=== PATIENT | male | born 1985 | race Hispanic/Latino ===

== ENCOUNTER 2017-07-30 08:31 | Observation (INO) | payer SELFPAY ==
[2017-07-30 10:11] LABS: #Basophils 0.1 thou/uL (0.0-0.2); #Lymphocytes 2.1 thou/uL (1.20-3.40); #Monocytes 1.2 thou/uL (0.11-0.59); #Neutrophils 12.6 thou/uL (1.40-6.50); %Basophils 0.6 % (0.0-1.0); %Eosinophils 0.3 % (0.0-10.0); %Lymphocytes 13.2 % (21.0-51.0); %Monocytes 7.4 % (0.0-10.0); %Neutrophils 78.4 % (42.0-75.0); Hemoglobin 13.8 g/dL (14.0-18.0); Mean Corpuscular HGB CONC 33.5 g/dL (32.0-36.0); Mean Corpuscular Hemoglobin 31.4 pg (27.0-31.0); Mean Platelet Volume 6.2 fL (7.4-10.4); Platelet Count 356 thou/uL (130-400); RBC Distribution Width 11.9 % (11.5-14.5); Red Blood Cell (RBC) Count 4.38 mill/uL (4.70-6.10); White Blood Cell (WBC) Count 16.1 thou/uL (4.8-10.8)
[2017-07-30] MEDS ORDERED: Clindamycin/D5W 900 mg/50 ml Premix Bag ONE (10:21)
[2017-07-30] MEDS ORDERED: Dexamethasone 4 mg/ml Vial ONE ×2 (10:21→11:00)
[2017-07-30 10:37] LABS: ALT (SGPT) 57 U/L (8-55); AST (SGOT) 33 U/L (5-34); Albumin 4.6 g/dL (3.5-5.0); Alkaline Phosphatase 150 U/L (40-150); Anion Gap 15 mmol/L (10-20); BUN (Urea Nitrogen) 11 mg/dL (8.9-20.6); Bilirubin, Total 1.4 mg/dL (0.2-1.2); Calc. Creatinine Clearance 0 mL/min (70-130); Calcium 10.1 mg/dL (7.8-10.44); Carbon Dioxide 32 mmol/L (22-29); Chloride 93 mmol/L (98-107); Estimated GFR-MDRD 86; Globulin 4.7 g/dL (2.4-3.5); Glucose 116 mg/dL (70-105); Potassium 3.5 mmol/L (3.5-5.1); Protein, Total 9.3 g/dL (6.0-8.3); Sodium 136 mmol/L (136-145)
[2017-07-30] MEDS ORDERED: cefTRIAXone\\ROCEPHIN 2 GM, Admixture Fee 1 EACH in Sodium Chloride 0.9% 100 ML IVPB SCH (10:45)
[2017-07-30] MEDS ORDERED: ISOVUE-370 76%-LOCM 1 ML ONE (11:11)
--- NOTE | 2017-07-30 11:26 | CT ---
EXAM: POSTCONTRAST SOFT TISSUE NECK CT: HISTORY: Five days of sore throat. COMPARISON: None. TECHNIQUE: Postcontrast soft tissue neck CT is performed in the axial plane. Sagittal and coronal reformatted i mages are submitted for interpretation. FINDINGS: Adequate mastoid air cell aeration. Left maxillary sinus and ethmoidal mucosal disease. There is fu llness of the nasopharynx with effacement of the left fossa of Rosenmuller. There is abnormal soft t issue and mucosal thickening extending inferiorly from the nasopharynx down to the supraglottic laryn x. There is a large left peritonsillar abscess measuring 3.9 x 3.4 x 5.4 cm. There is effacement of the left parapharyngeal fat. There is narrowing of the airway. Epiglottis has a normal caliber. P reepiglottic fat is preserved. No obvious masses in the oral cavity. Midline fatty raphae of the to ngue is preserved. There is mild prevertebral soft tissue swelling at the level of the upper cervical spine. There is n o evidence of a prevertebral abscess. Enlarged bilateral level II lymph nodes measuring 1.3 x 2.1 on the right and 1.9 x 1.4 on the left. There is patency of both cervical and carotid vertebral arteries. Symmetric attenuation of the sternocleidomastoid muscles. Appropriate attenuation of the parotic and submandibular glands. The thyroid gland is unremarkable. Mediastinum and lung apices are also unremarkable. IMPRESSION: Left peritonsillar abscess as defined above. Results of the study discussed with Abbie Gómez 07/30/17 at 10:42 a.m. CODE DEVONTE POS: JOSELITO
[2017-07-30] MEDS ORDERED: Ondansetron HCl/PF 4 MG/2 ML Vial IVP PRN (14:23)
[2017-07-30] MEDS ORDERED: Acetaminophen 325 MG TAB PO PRN (14:23)
[2017-07-30] MEDS ORDERED: HYDROcodone/Acetaminophen 5/325 mg Tablet PO PRN (14:23)
--- NOTE | 2017-07-30 15:32 | HP ---
DATE OF CONSULTATION: 07/30/2017 INPATIENT CONSULT REASON FOR CONSULTATION: The patient was seen in consultation by the emergency room for evaluation o f tonsillar abscess. HISTORY OF PRESENT ILLNESS: This is a 31-year-old gentleman who has had a 5-day history of swelling of his left tonsil and bilateral throat pain. He has had low grade fevers, poor oral intake, and tro uble tolerating his secretions, which just started last night. He reports having two previous tonsil lar abscesses that have been drained at the bedside. He has not ever followed up for discussion abou t tonsillectomy. PAST MEDICAL HISTORY: Noncontributory. PAST SURGICAL HISTORY: None. MEDICATIONS: None. DRUG ALLERGIES: TETANUS SHOT. SOCIAL HISTORY: Social tobacco and alcohol user. REVIEW OF SYSTEMS: Constitutional: Positive fevers, chills, 5-pound weight loss in the past week. Cardiovascular: No chest pain or orthopnea. Hematology: No history of bleeding disorders. Lungs: No history of wheezing, asthma or bronchitis. PHYSICAL EXAMINATION: GENERAL: Patient is resting in bed comfortably. He has trismus to approximately 2-3 cm. HEENT: There was a very large left tonsillar abscess present pushing the uvula towards the right. T he right tonsil is 2+ cryptic, mildly injected and red. NECK: Subtle lymphadenopathy bilateral level 2, no firm areas, no abscess collection. No fluctuance noted. Voice has a sound to it, otherwise, no stridor. IMAGING: CT scan of the neck was reviewed by me, which shows a large left intratonsillar abscess pre sent along with bilateral lymphadenopathy level 2 and level 3, all less than 2 cm. ASSESSMENT: 1. Left tonsil abscess. 2. Acute tonsillitis. 3. Tonsillar hypertrophy. PROCEDURE: At the bedside, risks, benefits, and alternatives discussed with the patient. One mL of 1% lidocaine 1:100,000 epinephrine was injected into the anterior wall of the expanded tonsil fossa a nd pillar. Following this, multiple injections with an 18 gauge were made, aspirating a total of 12 mL of purulence from this tonsil area. The uvula immediately returned to the midline. His airway is much more patent. The patient was able to tolerate secretions. PLAN: He will remain in the emergency room for the next 2-3 hours until he is much improved. He can be discharged home on Augmentin 875 mg 1 twice daily and follow up in our clinic tomorrow for repeat evaluation. Otherwise, if the patient is unable to tolerate secretions in the hour or two, then rec ommend admissions to the hospital group and we will reevaluate him after 24-48 hours of IV antibiotic s.
[2017-07-30] MEDS ORDERED: Cepastat Lozenges 1 LOZ PO PRN (16:20)
[2017-07-30] MEDS ORDERED: Ketorolac Tromethamine 30 MG/ML VIAL IVP SCH (16:30)
[2017-07-30 16:46] VITALS: BMI 31.8
[2017-07-30] MEDS: Dextrose 5 %-0.45 % NaCl 1,000 ML IV SCH (17:09)
[2017-07-30] MEDS: Ibuprofen 800 MG TAB PO SCH ×2 (17:10→21:25)
[2017-07-30] MEDS ORDERED: FLU VACC QS2017-18 36 mo. & older 0.5 ML SYRINGE IM ONE (17:30)
--- NOTE | 2017-07-30 18:06 | HP ---
PRIMARY CARE PHYSICIAN: None. PRESENTING COMPLAINT: "I've been unable to swallow." HISTORY OF PRESENT ILLNESS: This is a 31-year-old male with no past medical history who presented to the hospital after he has felt unwell for the past week. He developed fevers, chills, and pain in h is throat (sore throat) associated with inability to swallow. He also was unable to eat in this yassine od and has felt dehydrated. He has had similar episodes in the past, episode resolved with him takin g oral antibiotics and some lozenges. Due to persistence of his symptoms, he became lethargic and re ported to the emergency room. At the emergency room, he was volume depleted and examination revealed left tonsillar abscess with lymphadenopathy in his neck. ENT was called and drainage was done in e emergency room; however, he still remained unable to take food p.o., so decision was made to admit him overnight with likely discharge in the next 24-48 hours, after which he will be reviewed by ENT. Imaging at the emergency room of the soft tissue of his neck revealed a left peritonsillar abscess. Labs showed elevated WBC with left shift. Chemistry, marginally unremarkable. PAST MEDICAL HISTORY: None. PAST SURGICAL HISTORY: None. FAMILY HISTORY: Reviewed, not contributory. SOCIAL HISTORY: He smokes cigarettes and drinks alcohol occasionally. No use of illicit drugs. ALLERGIES: None. REVIEW OF SYSTEMS: GENERAL: Positive for fevers and chills. HEENT: Positive for sore throats and difficulty swallowing. CARDIAC: Negative. RESPIRATORY: Denies cough, shortness of breath or sputum production. GASTROINTESTINAL: Negative. GENITOURINARY: Negative. MUSCULOSKELETAL: Negative. PSYCHIATRIC: Negative. NEUROLOGICAL: Denies headache, lightheadedness or loss of consciousness. SKIN: Negative. IMMUNOLOGICAL: Negative. HEMATOLOGICAL: Negative. PHYSICAL EXAMINATION: VITAL SIGNS: Borderline hypotensive with blood pressure of 89/50. Other vital signs within normal l imits. GENERAL: Not in acute distress, sitting comfortably in bed. HEENT: PERRLA, EOMI not pale, anicteric. Normocephalic and atraumatic. Throat exam; erythema and t onsils with hyperemia. NECK: Supple, full range of movements, cervical lymphadenopathy. CHEST: Vesicular breath sounds bilaterally. No wheezes, rales or rhonchi. CARDIOVASCULAR: S1 and S2 only. No murmurs, rubs or gallops. ABDOMEN: Soft, nontender and nondistended. Bowel sounds present. No hepatosplenomegaly. EXTREMITIES: Moves all spontaneously with no edema. SKIN: Warm, dry and well perfused. NEUROLOGIC: Alert and well oriented. No focal deficits. IMAGING DATA: As above. LABORATORY DATA: As above. ASSESSMENT: 1. Left tonsillar abscess. 2. Acute tonsillitis. 3. Tonsillar hypertrophy. PLAN: He is status post drainage by ENT. He is, however, unable to tolerate p.o. We will admit him for IV hydration, adequate pain control with intravenous morphine. We will also place on lozenges a nd we will start liquid diet tonight and advance as tolerated. We will follow up his throat swab for culture results.
[2017-07-30] MEDS: Docusate 100 MG CAP PO SCH (21:25)
[2017-07-31] MEDS: Dextrose 5 %-0.45 % NaCl 1,000 ML IV SCH ×2 (01:17→09:24)
[2017-07-31] MEDS: Ibuprofen 800 MG TAB PO SCH ×2 (04:38→09:25)
[2017-07-31 05:15] LABS: #Lymphocytes 1.6 thou/uL (1.20-3.40); #Monocytes 0.8 thou/uL (0.11-0.59); #Neutrophils 12.7 thou/uL (1.40-6.50); %Eosinophils 0.1 % (0.0-10.0); %Lymphocytes 10.8 % (21.0-51.0); %Neutrophils 84.2 % (42.0-75.0); Hemoglobin 12.6 g/dL (14.0-18.0); Mean Corpuscular HGB CONC 32.6 g/dL (32.0-36.0); Mean Corpuscular Hemoglobin 31.4 pg (27.0-31.0); Mean Corpuscular Volume 96.5 fl (80.0-94.0); Mean Platelet Volume 6.5 fL (7.4-10.4); Platelet Count 342 thou/uL (130-400); White Blood Cell (WBC) Count 15.1 thou/uL (4.8-10.8)
[2017-07-31 05:29] LABS: Anion Gap 9 mmol/L (10-20); BUN (Urea Nitrogen) 8 mg/dL (8.9-20.6); Calc. Creatinine Clearance 173 mL/min (70-130); Calcium 9.3 mg/dL (7.8-10.44); Carbon Dioxide 30 mmol/L (22-29); Chloride 101 mmol/L (98-107); Estimated GFR-MDRD Greater than 90; Glucose 129 mg/dL (70-105); Potassium 3.8 mmol/L (3.5-5.1); Sodium 136 mmol/L (136-145)
[2017-07-31] MEDS ORDERED: cefTRIAXone\\ROCEPHIN 1 GM in Sodium Chloride 0.9% 100 ML IVPB SCH (07:00)
[2017-07-31] MEDS: Docusate 100 MG CAP PO SCH (09:26)
[2017-07-31] MEDS ORDERED: Dexamethasone 4 mg/ml Vial SLOW IVP SCH (10:45)
--- NOTE | 2017-07-31 10:52 | PDOC.PN ---
- Subjective Encounter Start Date: 07/31/17 Encounter Start Time: 07:10 -: old records requested/rev Patient seen and examined. No new complaints. No overnight events - Objective MAR Reviewed: Yes Vital Signs & Weight: Vital Signs (12 hours) Temp Pulse Resp BP BP Pulse Ox 07/31/17 08:00 98.0 F 70 16 07/31/17 07:24 98.0 F 70 16 109/53 L 97 07/31/17 04:00 97.4 F L 73 18 118/71 98 Weight Weight 197 lb 1.6 oz I&O: 07/30/17 07/31/17 08/01/17 06:59 06:59 06:59 Intake Total 1844 Balance 1844 Result Diagrams: 07/31/17 04:27 07/31/17 04:27 Radiology Reviewed by me: Yes Phys Exam - Physical Examination Constitutional: NAD HEENT: PERRLA, moist MMs, sclera anicteric, 2+ tonsils Neck: no JVD, supple Respiratory: no wheezing, no rales, no rhonchi Cardiovascular: RRR, no significant murmur, no rub Gastrointestinal: soft, non-tender, no distention, positive bowel sounds Musculoskeletal: no edema, pulses present Neurological: non-focal, normal sensation, moves all 4 limbs Psychiatric: normal affect, A&O x 3 Skin: no rash, normal turgor Dx/Plan (1) Peritonsillar abscess Code(s): J36 - PERITONSILLAR ABSCESS Status: Acute (2) Obesity (BMI 30.0-34.9) Code(s): E66.9 - OBESITY, UNSPECIFIED Status: Chronic - Plan cont current plan of care, plan discussed w/ family, continue antibiotics * able to swallow ok, no fever, pain controlled, pt is comfortable to go home * will give decadron 10 mg iv one time and after rocephin today will discharge on augmentin and follow up with ent * medication reviewed as below * symptomatic treatment. Review of Systems - Review of Systems Constitutional: negative: fever, chills, sweats, weakness, malaise, other Eyes: negative: Pain, Vision Change, Conjunctivae Inflammation, Eyelid Inflammation, Redness, Other ENT: Throat Pain. negative: Ear Pain, Ear Discharge, Nose Pain, Nose Discharge , Nose Congestion, Mouth Pain, Mouth Swelling, Throat Swelling, Other Respiratory: negative: Cough, Dry, Shortness of Breath, Hemoptysis, SOB with Excertion, Pleuritic Pain, Sputum, Wheezing Cardiovascular: negative: chest pain, palpitations, orthopnea, paroxysmal nocturnal dyspnea, edema, light headedness, other Gastrointestinal: negative: Nausea, Vomiting, Abdominal Pain, Diarrhea, Constipation, Melena, Hematochezia, Other Genitourinary: negative: Dysuria, Frequency, Incontinence, Hematuria, Retention , Other Musculoskeletal: negative: Neck Pain, Shoulder Pain, Arm Pain, Back Pain, Hand Pain, Leg Pain, Foot Pain, Other Skin: negative: Rash, Lesions, Khris, Bruising, Other - Medications/Allergies Allergies/Adverse Reactions: Allergies Allergy/AdvReac Type Severity Reaction Status Date / Time tetanus toxoid, adsorbed Allergy Verified 07/30/17 16:54 Medications: Current Medications Acetaminophen (Tylenol) 650 mg PO Q4H PRN PRN Reason: Headache/Fever or Pain Hydrocodone Bitart/Acetaminophen ([place] 5/325) 1 tab PO Q4H PRN PRN Reason: Moderate Pain (4-6) Dexamethasone (Decadron) 10 mg SLOW IVP NOW [facility] Stop: 07/31/17 12:00 Docusate Sodium (Colace) 100 mg PO BID [facility] Last Admin: 07/31/17 09:26 Dose: Not Given Dextrose/Sodium Chloride (D5 1/2 Ns) 1,000 mls @ 125 mls/hr IV .Q8H [facility] Last Admin: 07/31/17 09:24 Dose: 1,000 mls Ceftriaxone Sodium 1 gm/ (Syringe 0.4 ml/ Sterile Water) 10 mls @ 120 mls/hr SLOW IVP 1200 [facility] Ibuprofen (Motrin) 800 mg PO Q6H [facility] Last Admin: 07/31/17 09:25 Dose: 800 mg Morphine Sulfate (Morphine) 2 mg SLOW IVP Q4H PRN PRN Reason: Moderate to Severe Pain (6-10) Ondansetron HCl (Zofran) 4 mg IVP Q6H PRN PRN Reason: Nausea/Vomiting Sodium Chloride (Flush - Normal Saline) 10 ml IVF Q12HR [facility] Sodium Chloride (Flush - Normal Saline) 10 ml IVF PRN PRN PRN Reason: Saline Flush Throat Lozenges (Cepastat Lozenges) 1 jefe PO Q2H PRN PRN Reason: Sore Throat
[2017-07-31 12:00] VITALS: BP 100/58; TEMP 97.4
[2017-07-31] MEDS ORDERED: cefTRIAXone\\ROCEPHIN 1 GM, Syringe 0.4 ML in Sterile Water 9.6 ML SLOW IVP SCH (12:00)
--- NOTE | 2017-07-31 12:09 | DIS ---
DATE OF ADMISSION: 07/30/2017 DATE OF DISCHARGE: 07/31/2017 PRIMARY CARE PHYSICIAN: Aamir Roberts D.O. DISCHARGE DISPOSITION: Home. PRIMARY DISCHARGE DIAGNOSIS: Peritonsillar abscess on the left side. SECONDARY DISCHARGE DIAGNOSIS: Obesity with body mass index 31. PRIMARY PROCEDURE/OPERATION: None. RADIOLOGICAL INVESTIGATION: CT soft tissue neck showed left peritonsillar abscess, tonsillar hypertr ophy. SIGNIFICANT LABORATORY DATA: WBC 15.1, hemoglobin 12.6, platelets 342. Sodium 136, creatinine 0.79, calcium 9.3, AST 33, ALT 57, alkaline phosphatase 150, albumin 4.6. Group A streptococcal culture n egative. DISCHARGE MEDICATION: Augmentin 875 mg twice daily for 10 days. CONTRAINDICATIONS: None. CODE STATUS: FULL CODE. INPATIENT MICRO PALEONTOLOGIST: Dr. Edgardo Boggs was consulted while in hospital. ALLERGIES: TETANUS TOXOID. DISCHARGE PLAN: Post hospital, patient is advised to make appointment with Dr. Edgardo Boggs in 1 we . HOSPITAL COURSE: A 31-year-old male with above-mentioned medical problem who was admitted b y Dr. Herrera. Please see his H&P for further details. This patient was feeling sore throat and he was having throat pain on the left side. He was diagnosed with left peritonsillar abscess. He was having difficulty swallowing, but he was able to swallow clear liquids without any problem. This patient was evaluated in the emergency room and his CT soft tissue neck showed left tonsillar ab scess. ENT doctor evaluated this patient and they recommended that this patient does not need any ren rgical drainage at this point and they recommended to continue antibiotic therapy. While in hospital, we prescribed Rocephin and he received yesterday and today and his pain was contro lled with ibuprofen and Toradol. I also provided one dose of Decadron before discharge and overall t his patient is doing very well. He is tolerating soft diet and his pain is under control. He is afe brile and he is comfortable to go home. I prescribed Augmentin for another 10 days and he will make appointment with ENT doctor within a week. Overall, this patient is medically stable for discharge. Plan of care discussed with the family memb er and all agreed to go home. The patient is seen and examined at bedside today. Please see my prog ress note from today for further details. DISCHARGE MEDICATIONS: Send to his pharmacy.
== END 2017-07-31 14:17 | disposition home or self-care (01) ==
LOC: ERS 08:31 → 2SW 14:32
PROVIDERS: ADMIT Internal Medicine; ATTEND Internal Medicine
DX: J03.90 Acute tonsillitis, unspecified (principal); E66.9 Obesity, unspecified; F17.210 Nicotine dependence, cigarettes, uncomplicated; R13.10 Dysphagia, unspecified; Z68.31 Body mass index [BMI] 31.0-31.9, adult; Z88.7 Allergy status to serum and vaccine
CPT/HCPCS: 36415; 70491; 80048; 80053; 85025; 87081; 87430; 90471; 90682; 90732; 96361; 96374; 96375; 96376; 99406; A4216; G0008; G0009; G0378; J0696; J1100; J1885; J2270; J3490; J7050; Q2036

== ENCOUNTER 2017-12-23 22:27 | Emergency (ER) | payer SELFPAY ==
[2017-12-23 23:20] LABS: #Basophils 0.1 thou/uL (0.0-0.2); #Eosinphils 0.2 thou/uL (0.0-0.7); #Lymphocytes 3.1 thou/uL (1.20-3.40); #Monocytes 0.5 thou/uL (0.11-0.59); #Neutrophils 5.5 thou/uL (1.40-6.50); %Basophils 0.9 % (0.0-1.0); %Eosinophils 1.8 % (0.0-10.0); %Lymphocytes 32.9 % (21.0-51.0); %Monocytes 5.1 % (0.0-10.0); %Neutrophils 59.3 % (42.0-75.0); Hemoglobin 16.1 g/dL (14.0-18.0); Mean Corpuscular HGB CONC 33.9 g/dL (32.0-36.0); Mean Corpuscular Hemoglobin 31.8 pg (27.0-31.0); Mean Corpuscular Volume 93.8 fL (78.0-98.0); Mean Platelet Volume 5.7 fL (7.4-10.4); Platelet Count 395 thou/uL (130-400); Red Blood Cell (RBC) Count 5.06 mill/uL (4.70-6.10); White Blood Cell (WBC) Count 9.3 thou/uL (4.8-10.8)
[2017-12-23 23:40] LABS: ALT (SGPT) 19 U/L (8-55); AST (SGOT) 19 U/L (5-34); Acetaminophen Less than 6.0 mcg/mL (10.0-30.0); Albumin 4.7 g/dL (3.5-5.0); Alcohol Less than 10 mg/dL (Less than 10); Alkaline Phosphatase 98 U/L (40-150); Anion Gap 15 mmol/L (10-20); BUN (Urea Nitrogen) 7 mg/dL (8.9-20.6); Bilirubin, Total 0.9 mg/dL (0.2-1.2); Calc. Creatinine Clearance 0 mL/min (70-130); Calcium 10.1 mg/dL (7.8-10.44); Carbon Dioxide 29 mmol/L (22-29); Chloride 101 mmol/L (98-107); Estimated GFR-MDRD 69; Globulin 3.7 g/dL (2.4-3.5); Glucose 116 mg/dL (70-105); Potassium 3.7 mmol/L (3.5-5.1); Protein, Total 8.4 g/dL (6.0-8.3); Salicylate Less than 8.0 mg/dL (15.0-30.0); Sodium 141 mmol/L (136-145)
== END 2017-12-24 00:50 | disposition home or self-care (01) ==
LOC: ERS 22:27
DX: R45.1 Restlessness and agitation (principal); T50.905A Adverse effect of unspecified drugs, medicaments and biological substances, initial encounter; F17.210 Nicotine dependence, cigarettes, uncomplicated
CPT/HCPCS: 36415; 80053; 80307; 85025; 93005

== ENCOUNTER 2018-10-13 02:33 | Emergency (ER) | payer SELFPAY | END 2018-10-13 03:49 | disposition home or self-care (01) | LOC: ERS 02:33 | DX: F10.129 Alcohol abuse with intoxication, unspecified (principal); F12.10 Cannabis abuse, uncomplicated; F17.210 Nicotine dependence, cigarettes, uncomplicated | CPT/HCPCS: 99284 ==

== ENCOUNTER 2021-07-30 06:48 | Emergency (ER) | payer SELFPAY ==
[2021-07-30 07:23] LABS: #Eosinphils 0.1 thou/uL (0.0-0.7); #Monocytes 0.4 thou/uL (0.11-0.59); #Neutrophils 6.4 thou/uL (1.40-6.50); %Basophils 0.4 % (0.0-1.0); %Eosinophils 0.8 % (0.0-10.0); %Lymphocytes 22.5 % (21.0-51.0); %Neutrophils 72.3 % (42.0-75.0); Hemoglobin 15.4 g/dL (14.0-18.0); Mean Corpuscular HGB CONC 33.9 g/dL (32.0-36.0); Mean Corpuscular Hemoglobin 32.7 pg (27.0-31.0); Mean Corpuscular Volume 96.4 fL (78.0-98.0); Mean Platelet Volume 6.3 fL (7.4-10.4); Platelet Count 346 thou/uL (130-400); RBC Distribution Width 11.3 % (11.5-14.5); Red Blood Cell (RBC) Count 4.71 mill/uL (4.70-6.10); White Blood Cell (WBC) Count 8.9 thou/uL (4.8-10.8)
[2021-07-30 07:40] LABS: ALT (SGPT) 38 U/L (8-55); AST (SGOT) 24 U/L (5-34); Albumin 4.9 g/dL (3.5-5.0); Alkaline Phosphatase 91 U/L (40-110); Anion Gap 15 mmol/L (10-20); BUN (Urea Nitrogen) 9 mg/dL (8.9-20.6); Bilirubin, Total 0.5 mg/dL (0.2-1.2); CK (CPK) 239 U/L (30-200); Calc. Creatinine Clearance 0 mL/min (70-130); Calcium 9.9 mg/dL (7.8-10.44); Carbon Dioxide 28 mmol/L (22-29); Chloride 97 mmol/L (98-107); Globulin 3.8 g/dL (2.4-3.5); Glucose 85 mg/dL (70-105); Potassium 3.8 mmol/L (3.5-5.1); Protein, Total 8.7 g/dL (6.0-8.3); Sodium 136 mmol/L (136-145)
== END 2021-07-30 08:45 | disposition home or self-care (01) ==
LOC: ERS 06:48
DX: F19.10 Other psychoactive substance abuse, uncomplicated (principal); F17.210 Nicotine dependence, cigarettes, uncomplicated
CPT/HCPCS: 71045; 80053; 82550; 84484; 85025; 93005